=== PATIENT | male | born 1970 | race Caucasian/White ===

== ENCOUNTER 2018-09-24 12:18 | Day surgery (SDC) | payer BC ==
--- NOTE | 2018-09-24 12:46 | EDM.PDOC ---
ED HPI GENERAL MEDICAL PROBLEM - General Chief Complaint: ENT Problem Stated Complaint: THROAT PAIN Time Seen by Provider: 09/24/18 12:35 - History of Present Illness INITIAL COMMENTS - FREE TEXT/NARRATIVE: HISTORY AND PHYSICAL: History of present illness: Patient is a 48-year-old white male is a history of esophageal food bolus who states he has had diagnostic testing prior. Patient states his cardiac she has been unable to handle any liquids subsequent Review of systems: As per history of present illness and below otherwise all systems reviewed and negative. Past medical history: As per history of present illness and as reviewed below otherwise noncontributory. Surgical history: As per history of present illness and as reviewed below otherwise noncontributory. Social history: No reported history of drug or alcohol abuse. Family history: As per history of present illness and as reviewed below otherwise noncontributory. Physical exam: HEENT: Atraumatic, normocephalic, pupils reactive, negative for conjunctival pallor or scleral icterus, mucous membranes moist, throat clear, neck supple, nontender, trachea midline. Lungs: Clear to auscultation, breath sounds equal bilaterally, chest nontender. Heart: S1S2, regular, negative for clicks, rubs, or JVD. Abdomen: Soft, nondistended, nontender. Negative for masses or hepatosplenomegaly. Negative for costovertebral tenderness. Pelvis: Stable nontender. Genitourinary: Deferred. Rectal: Deferred. Extremities: Atraumatic, negative for cords or calf pain. Neurovascular unremarkable. Neuro: Awake, alert, oriented. Cranial nerves II through XII unremarkable. Cerebellum unremarkable. Motor and sensory unremarkable throughout. Exam nonfocal. Diagnostics: None Therapeutics: Saline lock Impression: #1 esophageal food bolus Definitive disposition and diagnosis as appropriate pending reevaluation and review of above. Chest Pain Score (Numeric/FACES): 10 - Related Data Allergies Allergy/AdvReac Type Severity Reaction Status Date / Time No Known Allergies Allergy Verified 09/24/18 12:30 Home Meds: Home Meds . [No Known Home Meds] 09/24/18 [History] Past Medical History - Past Health History Medical/Surgical History: Denies Medical/Surgical History Social & Family History - Tobacco Use Smoking Status *Q: Current Some Day Smoker Years of Tobacco use: 1 Packs/Tins Daily: 0.1 - Recreational Drug Use Recreational Drug Use: No ED ROS GENERAL - Review of Systems Review Of Systems: ROS reveals no pertinent complaints other than HPI. ED EXAM, GENERAL - Physical Exam Exam: See Below (See dictation) Course - Vital Signs Last Recorded V/S: Last Vital Signs Temp 36.4 C 09/24/18 12:27 Pulse 73 09/24/18 12:27 Resp 18 09/24/18 12:27 BP 120/81 09/24/18 12:27 Pulse Ox 99 09/24/18 12:27 Departure - Departure Time of Disposition: 12:46 Disposition: Still A Patient 30 Condition: Good Clinical Impression: Esophageal obstruction due to food impaction - Discharge Information Referrals: PCP,Unknown [Primary Care Provider] -
[2018-09-24] MEDS ORDERED: Sodium Chloride 0.9% 2.5 ML Syringe FLUSH PRN (13:04)
[2018-09-24] MEDS ORDERED: Sodium Chloride 0.9% 10 ML Syringe FLUSH PRN (13:04)
[2018-09-24] MEDS ORDERED: Sodium Chloride 0.9% 10 ML SDV IV PRN (13:04)
[2018-09-24] MEDS ORDERED: Lactated Ringers 1,000 ML IV SCH (13:15)
--- NOTE | 2018-09-24 13:29 | PCM.HP ---
H&P History of Present Illness - General Date of Service: 09/24/18 Source of Information: Patient History Limitations: Reports: No Limitations - History of Present Illness Initial Comments - Free Text/Narative: Patient is a 48 year old male who presents with a one day history of esophageal obstruction. He was eating meat yesterday when it became stuck. He tried vomiting it up but could not get it up. He did get some pieces of meat up, but he continued to have pressure and burning in the lower part of his chest. He states that he cannot even swallow his saliva. He tried drinking water and coke but vomited these up. He has a history of dysphagia. He was in [place] and had what sounds like an esophagram. He was told the muscle was "tight." He takes omeprazole or has taken it in the past. Denies fevers or chills. Chest Pain Score (Numeric/FACES): 10 - Related Data Allergies/Adverse Reactions: Allergies Allergy/AdvReac Type Severity Reaction Status Date / Time No Known Allergies Allergy Verified 09/24/18 12:30 Home Medications: Home Meds . [No Known Home Meds] 09/24/18 [History] Past Medical History - Past Health History Medical/Surgical History: Denies Medical/Surgical History Social & Family History - Tobacco Use Smoking Status *Q: Current Some Day Smoker Years of Tobacco use: 1 Packs/Tins Daily: 0.1 - Recreational Drug Use Recreational Drug Use: No H&P Review of Systems - Review of Systems: Review Of Systems: ROS reveals no pertinent complaints other than HPI. Exam - Exam Exam: See Below - Vital Signs Vital Signs: Last Vital Signs Temp 36.4 C 09/24/18 12:27 Pulse 73 09/24/18 12:27 Resp 18 09/24/18 12:27 BP 120/81 09/24/18 12:27 Pulse Ox 99 09/24/18 12:27 Weight: 94.347 kg - Exam General: Alert, Oriented, Cooperative HEENT: Conjunctiva Clear, Mucosa Moist & [place], Posterior Pharynx Clear Neck: Supple, Trachea Midline Lungs: Clear to Auscultation, Normal Respiratory Effort Cardiovascular: Regular Rate, Regular Rhythm GI/Abdominal Exam: Soft, Non-Tender, No Distention, No Mass Back Exam: Normal Inspection Extremities: Normal Inspection - Problem List (1) Esophageal obstruction due to food impaction SNOMED Code(s): 646565555 ICD Code: K22.2 - ESOPHAGEAL OBSTRUCTION; T18.128A - FOOD IN ESOPHAGUS CAUSING OTHER INJURY, INITIAL ENCOUNTER Status: Acute Current Visit: Yes Problem List Initiated/Reviewed/Updated: Yes Orders Last 24hrs: Active Orders 24 hr Category Date Time Status Verify Patient Consent Obtain [RC] ASDIRECTED Care 09/24/18 13:04 Active Lactated Ringers [Ringers, Lactated] 1,000 ml Med 09/24/18 13:15 Active IV ASDIRECTED Sodium Chloride 0.9% [Normal Saline] Med 09/24/18 13:04 Active 10 ml IV ASDIRECTED PRN Sodium Chloride 0.9% [Saline Flush] Med 09/24/18 13:04 Active 10 ml FLUSH ASDIRECTED PRN Sodium Chloride 0.9% [Saline Flush] [facility] 09/24/18 13:04 Active 2.5 ml FLUSH ASDIRECTED PRN Medication Administration Instruction [OM.PC] Routine Oth 09/24/18 13:04 Ordered Peripheral IV Insertion Adult [OM.PC] Routine Oth 09/24/18 13:04 Ordered Medication Orders Lactated Ringer's (Ringers, Lactated) 1,000 mls @ 125 mls/hr IV ASDIRECTED ANJEL Last Admin: 09/24/18 13:15 Dose: 125 mls/hr Sodium Chloride (Saline Flush) 10 ml FLUSH ASDIRECTED PRN PRN Reason: Keep Vein Open Sodium Chloride (Saline Flush) 2.5 ml FLUSH ASDIRECTED PRN PRN Reason: Keep Vein Open Sodium Chloride (Normal Saline) 10 ml IV ASDIRECTED PRN PRN Reason: IV Use Assessment/Plan Comment:: Patient is a 48 year old male who presents with possible food bolus obstruction. Discussed the need to go to the OR for EGD with food disimpaction. I explained the procedure, the expected post operative course and risks including bleeding or perforation. He verbalized understanding and wishes to proceed.
[2018-09-24] MEDS ORDERED: Midazolam 1 MG/ML 2 ML SDV ONE (13:49)
[2018-09-24] MEDS ORDERED: Lidocaine 2% 5 ML SDV ONE (13:49)
[2018-09-24] MEDS ORDERED: Ondansetron 4 MG/2 ML SDV ONE (13:49)
[2018-09-24] MEDS ORDERED: fentaNYL 250 MCG/5 ML SDV ONE (13:49)
[2018-09-24] MEDS ORDERED: Propofol 200 MG/20 ML SDV ONE (13:49)
--- NOTE | 2018-09-24 13:54 | PCM.PREANE ---
Preanesthetic Assessment - Anesthesia/Transfusion/Family Hx Anesthesia History: No Prior Anesthesia Family History of Anesthesia Reaction: No - Review of Systems General: No Symptoms Pulmonary: No Symptoms Cardiovascular: No Symptoms Gastrointestinal: No Symptoms Neurological: No Symptoms Other: Reports: None - Physical Assessment O2 Sat by Pulse Oximetry: 99 Respiratory Rate: 18 Vital Signs: Last Vital Signs Temp 97.5 F 09/24/18 12:27 Pulse 73 09/24/18 12:27 Resp 18 09/24/18 12:27 BP 120/81 09/24/18 12:27 Pulse Ox 99 09/24/18 12:27 Height: 6 ft 4 in Weight: 94.347 kg ASA Class: 2E Mental Status: Alert & Oriented x3 Airway Class: Mallampati = 2 Dentition: Reports: Normal Dentition Thyro-Mental Finger Breadths: 2 Mouth Opening Finger Breadths: 3 ROM/Head Extension: Full Lungs: Clear to Auscultation, Normal Respiratory Effort Cardiovascular: Regular Rate, Regular Rhythm - Allergies Allergies/Adverse Reactions: Allergies Allergy/AdvReac Type Severity Reaction Status Date / Time No Known Allergies Allergy Verified 09/24/18 12:30 - Acknowledgements Anesthesia Type Planned: General Anesthesia Pt an Appropriate Candidate for the Planned Anesthesia: Yes Alternatives and Risks of Anesthesia Discussed w Pt/Guardian: Yes Pt/Guardian Understands and Agrees with Anesthesia Plan: Yes PreAnesthesia Questionnaire - Past Health History Medical/Surgical History: Denies Medical/Surgical History HEENT History: Reports: None Cardiovascular History: Reports: None Respiratory History: Reports: None Gastrointestinal History: Reports: Other (See Below) (Hx of food being stuck in esophagus) Genitourinary History: Reports: None Musculoskeletal History: Reports: None Psychiatric History: Reports: None Endocrine/Metabolic History: Reports: None Hematologic History: Reports: None Immunologic History: Reports: None Oncologic (Cancer) History: Reports: None Dermatologic History: Reports: None - Infectious Disease History Infectious Disease History: Reports: None - SUBSTANCE USE Smoking Status *Q: Current Some Day Smoker Recreational Drug Use History: No - HOME MEDS Home Medications: Home Meds Pantoprazole Sodium 40 mg PO DAILY #30 tablet. 09/24/18 [Rx] - CURRENT (IN HOUSE) MEDS Current Meds: Current Medications Lactated Ringer's (Ringers, Lactated) 1,000 mls @ 125 mls/hr IV ASDIRECTED ANJEL Last Admin: 09/24/18 13:15 Dose: 125 mls/hr Sodium Chloride (Saline Flush) 10 ml FLUSH ASDIRECTED PRN PRN Reason: Keep Vein Open Sodium Chloride (Saline Flush) 2.5 ml FLUSH ASDIRECTED PRN PRN Reason: Keep Vein Open Sodium Chloride (Normal Saline) 10 ml IV ASDIRECTED PRN PRN Reason: IV Use Discontinued Medications Fentanyl (Sublimaze) Confirm Administered Dose 250 mcg .ROUTE .STK-MED ONE Stop: 09/24/18 13:50 Lidocaine (Xylocaine-Mpf 2%) Confirm Administered Dose 5 ml .ROUTE .STK-MED ONE Stop: 09/24/18 13:50 Midazolam HCl (Versed 1 Mg/Ml) Confirm Administered Dose 2 mg .ROUTE .STK-MED ONE Stop: 09/24/18 13:50 Ondansetron HCl (Zofran) Confirm Administered Dose 4 mg .ROUTE .STK-MED ONE Stop: 09/24/18 13:50 Propofol (Diprivan 20 Ml) Confirm Administered Dose 200 mg .ROUTE .STK-MED ONE Stop: 09/24/18 13:50 Succinylcholine Chloride (Succinylcholine Chloride) Confirm Administered Dose 200 mg .ROUTE .STK-MED ONE Stop: 09/24/18 13:50
[2018-09-24] MEDS ORDERED: Glycopyrrolate 0.2 MG/ML SDV ONE ×3 (13:57→16:10)
[2018-09-24] MEDS ORDERED: Neostigmine Methylsulfate 1 MG/ML 5 ML Syringe ONE (13:57)
--- NOTE | 2018-09-24 16:23 | PCM.OPNOTE ---
- General Post-Op/Procedure Note Date of Surgery/Procedure: 09/24/18 Operative Procedure(s): EGD with food bolus extraction Findings: Large piece of meat obstructing distal esophagus Pre Op Diagnosis: esophageal obstruction due to food bolus Post-Op Diagnosis: same Anesthesia Technique: General ET Tube Primary Surgeon: Ryann Mack Condition: Good
--- NOTE | 2018-09-24 16:43 | PCM.POSTAN ---
POST ANESTHESIA ASSESSMENT - MENTAL STATUS Mental Status: Alert, Oriented - VITAL SIGNS Pulse Rate: 80 SaO2: 98 (2LPM) Resp Rate: 16 Blood Pressure: 117/70 - RESPIRATORY Respiratory Status: Respiratory Rate WNL, Airway Patent, O2 Saturation Stable - CARDIOVASCULAR CV Status: Pulse Rate WNL, Blood Pressure Stable - GASTROINTESTINAL GI Status: No Symptoms - PAIN Pain Score: 0 - POST OP HYDRATION Hydration Status: Adequate & Stable
--- NOTE | 2018-09-24 16:52 | PCM48HPAN ---
Post Anesthesia Note - EVALUATION WITHIN 48HRS OF ANESTHETIC Vital Signs in Normal Range: Yes Patient Participated in Evaluation: Yes Respiratory Function Stable: Yes Airway Patent: Yes Cardiovascular Function Stable: Yes Hydration Status Stable: Yes Pain Control Satisfactory: Yes Nausea and Vomiting Control Satisfactory: Yes Mental Status Recovered: Yes Pulse Rate: 80 SaO2: 96 Resp Rate: 16 Blood Pressure: 117/70
--- NOTE | 2018-09-24 16:53 | OR ---
SURGEON: RYANN MACK MD DATE OF PROCEDURE: 09/24/2018 PREOPERATIVE DIAGNOSIS: Esophageal obstruction secondary to food bolus. POSTOPERATIVE DIAGNOSIS: Esophageal obstruction secondary to food bolus. PROCEDURE PERFORMED: Esophagogastroduodenoscopy with food disimpaction. PRIMARY SURGEON: Endoscopist, Ryann Mack MD. ANESTHESIA: General endotracheal anesthesia. INSTRUMENT USED: Olympus endoscope. EXTENT OF EXAM: To the second portion of duodenum. LIMITATIONS: None. INDICATIONS: The patient is a 48-year-old male with a history of dysphagia, who presents with a 1-day history of esophageal obstruction. He was eating a piece of meat when it became stuck. He has a history of esophageal narrowing that he has had no further workup for. He tried passing the food bolus on his own at home, but was unable to. I explained the need for diagnostic EGD with food disimpaction. I explained the procedure, expected perioperative course, and the risks including bleeding or perforation. The patient verbalized understanding and wishes to proceed. PROCEDURE IN DETAIL: The patient was brought into the endoscopy suite and placed in a beach chair position. A time-out was completed verifying the patient's name, age, date of , allergies, and procedure to be performed. General endotracheal anesthesia was induced. A bite block was placed in the patient's mouth. A well lubricated endoscope was placed in the patient's mouth and advanced under direct visualization into the esophagus. In the distal esophagus, a large piece of meat was noted. This was grasped with a [employer] grasper and removed through the mouth. The endoscope was then placed back into the mouth and advanced under direct visualization to the second portion of the duodenum. This appeared normal and a photograph was taken. The scope was then fully withdrawn while examining the color, texture, anatomy, and integrity of the mucosa of the upper GI tract. The duodenum and gastric mucosa all appeared normal. A photograph was taken of the pylorus and GE junction which appeared normal. Scope was then brought into the esophagus. The patient appears to have a mild stricture in the mid to distal portion of the esophagus where the food bolus was impacted. Overall, the mucosa appeared intact with no evidence of ulceration or perforation. The scope was removed and the procedure terminated. The patient tolerated the procedure well and was taken to PACU in stable condition. ENDOSCOPIC DIAGNOSIS: Esophageal obstruction secondary to food bolus. RECOMMENDATIONS: The patient can follow up in clinic in 2 weeks. I can go home on a modified diet tonight. CALVIN / JACKI /[id number]
== END 2018-09-24 18:35 | disposition home or self-care (01) ==
LOC: MW.ED 12:18 → MW.SDS 13:30 → MW.MS 17:09 → MW.SDS 18:35
PROVIDERS: ATTEND Surgery
DX: T18.128A Food in esophagus causing other injury, initial encounter (principal); F17.200 Nicotine dependence, unspecified, uncomplicated
CPT/HCPCS: 43247; 99284; J0330; J2001; J2250; J2405; J2704; J3010; J3490; J7120